=== PATIENT | male | born 1960 | race Caucasian/White ===

== ENCOUNTER 2019-03-08 17:46 | Emergency (ER) | payer OTHER ==
[~2019-03-08] VITALS: Ht 177.8 cm; Wt 86.6 kg
[2019-03-08 19:34] LABS: IMMATURE GRANULOCYTES 0.6 % (0.0-5.0); MEAN CORPUSCULAR HGB 25.9 pG CALC (26.0-32.0); MEAN CORPUSCULAR HGB CONC 32.1 g/L CALC (32.0-36.0); NEUT# 10.37 thou/uL (1.82-7.42); RED BLOOD COUNT 3.59 mill/uL (4.70-6.10); RED CELL DISTRI WIDTH 13.9 % (11.5-15.5)
[2019-03-08 19:35] LABS: HEMOGLOBIN 9.3 g/dl (14.0-18.0); MEAN CELL VOLUME 80.8 fL CALC (80.0-100.0)
[2019-03-08 19:50] LABS: ALKALINE PHOSPHATASE 84 u/l (38-126); BUN 10 mg/dL (9-20); BUN/CREATININE RATIO 13 (12-20 (CALC)); CARBON DIOXIDE 23 mmol/l (22-30); CHLORIDE 94 mmol/l (95-108); CREATININE 0.8 mg/dL (0.7-1.3); GFR > 60 ML/MIN (>=60 (CALC)); GFR FOR AFR.AMER. > 60 ML/MIN (>=60 (CALC)); POTASSIUM 3.9 mmol/l (3.5-5.1); SGOT/AST 33 u/l (17-59); TOTAL PROTEIN 7.3 g/dL (6.3-8.2)
[2019-03-08 19:52] LABS: ALBUMIN 3.5 g/dL (3.2-5.0); ANION GAP 17 (6-22 (CALC)); BILIRUBIN, TOTAL 0.8 mg/dL (0.0-1.4); SODIUM 130 mmol/l (137-146)
[2019-03-08 20:55] LABS: URINE BLOOD DIPSTICK LARGE (NEGATIVE); URINE GLUCOSE - DIPSTICK NEGATIVE (NEGATIVE); URINE KETONE NEGATIVE (NEGATIVE); URINE LEUK ESTERASE NEGATIVE (NEGATIVE); URINE NITRITE - DIPSTICK NEGATIVE (Negative); URINE PH 5.5 (4.5-8.0); URINE PROTEIN - DIPSTICK 30 mg/dL (NEG-TRACE); URINE SPECIFIC GRAVITY 1.025
[2019-03-08 20:56] LABS: URINE BILIRUBIN - DIPSTICK NEGATIVE (NEGATIVE); URINE COLOR AMBER
[2019-03-08 20:58] LABS: BARBITURATES NEGATIVE (NEGATIVE); COCAINE NEGATIVE (NEGATIVE); METHADONE NEGATIVE (NEGATIVE); OXCYCODONE NEGATIVE (NEGATIVE); TETRAHYDROCANNABIONOL NEGATIVE (NEGATIVE); TRICYLIC ANTIDEPRESSANTS NEGATIVE (NEGATIVE)
[2019-03-08 21:03] LABS: URINE COARSE GRANULAR CAST FEW lpf; URINE MUCUS MANY hpf (NONE-FEW)
[2019-03-08] MEDS ORDERED: VOLTAREN - GENE75 MG PO (21:10)
[2019-03-08] MEDS ORDERED: KEFLEX500 M1 PO (21:10)
[2019-03-08 21:34] VITALS: BP 121/72
== END 2019-03-08 21:30 | disposition home or self-care (01) | DRG 563 ==
LOC: ED 17:46
PROVIDERS: Family Medicine
DX: S39.012A Strain of muscle, fascia and tendon of lower back, initial encounter (principal); K04.7 Periapical abscess without sinus; X58.XXXA Exposure to other specified factors, initial encounter